=== PATIENT | female | born 1970 | race Caucasian/White ===

== ENCOUNTER 2016-09-07 07:19 | Day surgery (SDC) | payer MEDICAID, MEDICARE ==
[~2016-09-07] VITALS: Ht 162.6 cm; Wt 117.0 kg
[~2016-09-07 07:19] MED LIST: BUPIVACAINE/PF-EPI 0.25% 1:200K ONE; NEOMY/POLYMYXIN B GU IRR. 1 ML IRRIG ONE
[2016-09-07 08:04] VITALS: BP 122/81
[2016-09-07] MEDS ORDERED: LACTATED RINGERS 1,000 ML IV SCH (08:08)
[2016-09-07] MEDS ORDERED: METH-356 PO (08:15)
[2016-09-07] MEDS ORDERED: ATOR40TA78 PO (08:15)
[2016-09-07] MEDS ORDERED: FENO145T32 PO (08:15)
[2016-09-07] MEDS ORDERED: PARO40TA45 PO (08:15)
[2016-09-07] MEDS ORDERED: AMIT25TA PO (08:15)
[2016-09-07] MEDS ORDERED: CYCL-259 PO (08:15)
[2016-09-07] MEDS ORDERED: CARV6.252 PO (08:15)
[2016-09-07] MEDS ORDERED: MIDAZOLAM 1 MG/ML, 2ML ONE (08:27)
[2016-09-07] MEDS ORDERED: FENTANYL PF 250 MCG/5ML ONE (08:27)
[2016-09-07 09:08] LABS: HCG UR OBC PASS
[2016-09-07 09:45] LABS: BLOOD UREA NITROGEN 17 mg/dL (7-18)
[2016-09-07 09:50] LABS: ASPARTATE AMINO TRANSFERASE 23 U/L (15-37)
[2016-09-07] MEDS ORDERED: ROCURONIUM 10 MG/ML ONE (09:57)
[2016-09-07] MEDS ORDERED: METOPROLOL 1 MG/ML, 5ML ONE (09:57)
[2016-09-07] MEDS ORDERED: PROPOFOL 10 MG/ML, 20ML ONE (09:57)
[2016-09-07] MEDS ORDERED: ONDANSETRON 2MG/ML, 2ML ONE (09:57)
[2016-09-07] MEDS ORDERED: NEOSTIGMINE 1 MG/ML, 10ML ONE (09:57)
[2016-09-07] MEDS ORDERED: DEXAMETHASONE 4 MG/ML, 1ML ONE (09:57)
[2016-09-07] MEDS ORDERED: SUCCINYLCHOLINE 20 MG/ML, 10ML ONE (09:57)
[2016-09-07] MEDS ORDERED: CEFAZOLIN 1,000 MG ONE (09:57)
[2016-09-07] MEDS ORDERED: GLYCOPYRROLATE 0.2MG/1ML ONE (09:57)
[2016-09-07] MEDS ORDERED: MEPERIDINE/PF 25MG/0.5ML IVPush PRN (10:00)
[2016-09-07] MEDS ORDERED: PROMETHAZINE 25 MG/ML, 1ML IV PRN (10:00)
[2016-09-07] MEDS ORDERED: HYDROmorphone 1 MG/ML, 1ML IV PRN (10:00)
[2016-09-07] MEDS ORDERED: METOPROLOL 1 MG/ML, 5ML IV PRN (10:00)
[2016-09-07] MEDS ORDERED: MIDAZOLAM 1 MG/ML, 2ML IV PRN (10:00)
[2016-09-07] MEDS ORDERED: ALBUTEROL SULFATE 2.5 MG/3 ML NPPB PRN (10:00)
[2016-09-07] MEDS ORDERED: ACETAMINOPHEN 325 MG TABLET PO PRN ×2 (10:00→14:00)
[2016-09-07] MEDS ORDERED: LABETALOL 5MG/ML, 20ML IV PRN (10:00)
[2016-09-07] MEDS ORDERED: ONDANSETRON 2MG/ML, 2ML IVPush PRN ×2 (10:00→14:00)
[2016-09-07] MEDS ORDERED: hydrALAzine 20 MG/ML, 1ML IV PRN (10:00)
[2016-09-07] MEDS ORDERED: OXYcodone 5 MG/5 ML ORAL.SOL UDC PO PRN (10:00)
[2016-09-07] MEDS ORDERED: EPHEDRINE 50 MG/ML, 1ML IVPush PRN (10:00)
[2016-09-07] MEDS ORDERED: NEOMY/POLYMYXIN B GU IRR. 1 ML IRRIG ONE (10:15)
[2016-09-07 10:19] LABS: HEMOGLOBIN 10.6 g/dL (11.7-16.4)
[2016-09-07] MEDS ORDERED: BUPIVACAINE/PF-EPI 0.25% 1:200K INFIL ONE (10:20)
[2016-09-07] MEDS ORDERED: FENTANYL PF 100 MCG/2ML ONE ×2 (12:07→12:29)
[2016-09-07] MEDS ORDERED: OXYcodone 5 MG/5 ML ORAL.SOL UDC ONE (12:07)
[2016-09-07] MEDS: FENTANYL PF 100 MCG/2ML IV PRN ×3 (12:09→12:45)
[2016-09-07] MEDS ORDERED: IBUPROFEN 600 MG TABLET ONE (13:16)
[2016-09-07] MEDS ORDERED: HYDROmorphone 2 MG/ML, 1ML ONE (13:36)
[2016-09-07] MEDS ORDERED: HYDROcodone/APAP 5/325 TABLET PO PRN (14:00)
[2016-09-07] MEDS ORDERED: OXYcodone/APAP 5/325MG TABLET PO PRN (14:00)
[2016-09-07] MEDS ORDERED: HYDROmorphone 2 MG/ML, 1ML IVPush PRN (14:00)
[2016-09-07] MEDS ORDERED: ACETAMINOPHEN 650 MG SUPP PR PRN (14:00)
[2016-09-07] MEDS ORDERED: ZOLPIDEM 5MG TABLET PO PRN (14:00)
[2016-09-07] MEDS ORDERED: SIMETHICONE 80 MG CHEW TAB PO SCH (16:00)
[2016-09-07] MEDS ORDERED: IBUPROFEN 600 MG TABLET PO SCH (16:00)
[2016-09-07] MEDS ORDERED: DOCUSATE 100 MG CAPSULE PO SCH (21:00)
== END 2016-09-07 19:30 | disposition home or self-care (01) ==
LOC: OUT 07:19
PROVIDERS: ATTEND Obstetrics & Gynecology Female Pelvic Medicine and Reconstructive Surgery
DX: D25.2 Subserosal leiomyoma of uterus (principal); N80.0 Endometriosis of uterus; N83.291 Other ovarian cyst, right side; N39.3 Stress incontinence (female) (male); N81.11 Cystocele, midline; N81.6 Rectocele; I10 Essential (primary) hypertension; F32.9 Major depressive disorder, single episode, unspecified; G47.33 Obstructive sleep apnea (adult) (pediatric); E66.01 Morbid (severe) obesity due to excess calories; Z68.41 Body mass index [BMI] 40.0-44.9, adult; G89.29 Other chronic pain; E78.00 Pure hypercholesterolemia, unspecified; M54.5 Low back pain; Z99.81 Dependence on supplemental oxygen; Z87.891 Personal history of nicotine dependence; Z72.89 Other problems related to lifestyle
CPT/HCPCS: 36415; 57260; 57288; 58552; 80053; 81025; 85025; 88307; C1771; J0330; J0690; J1100; J1170; J2250; J2405; J2704; J2710; J3010; J3490

== ENCOUNTER → 2018-07-13 | Outpatient (CLI) | payer MEDICARE ==
[~2018-07-13] MED LIST changes: +AMIT25TA PO; +ATOR40TA78 PO; -BUPIVACAINE/PF-EPI 0.25% 1:200K ONE; +CARV6.252 PO; +CYCL-259 PO; +FENO145T32 PO; +METH10TA2 PO; -NEOMY/POLYMYXIN B GU IRR. 1 ML IRRIG ONE; +PARO40TA61 PO
== END | disposition home or self-care (01) ==
LOC: CFH 16:06
PROVIDERS: ATTEND Nurse Practitioner Family
DX: J18.9 Pneumonia, unspecified organism (principal)
CPT/HCPCS: 71046